=== PATIENT | male | born 1965 | race Caucasian/White ===

== ENCOUNTER 2023-06-27 06:22 | Emergency (ER) | payer OTHER ==
[~2023-06-27] VITALS: Ht 177.8 cm; Wt 92.5 kg
[2023-06-27] MEDS ORDERED: NS 1,000 ML IV ONE (06:55)
[2023-06-27] MEDS ORDERED: LOSARTAN 50MG TABLET PO ONE (06:55)
[2023-06-27 07:17] LABS: BASO # 0.1 10^3/uL (0.0-0.2); BASO % 0.6 % (0.0-1.0); EOS # 0.1 10^3/uL (0.0-0.5); EOS % 1.1 % (0.0-3.0); HEMATOCRIT 42.9 % (42.0-52.0); HEMOGLOBIN 15.3 g/dl (13.5-17.5); LYMPH # 2.6 10^3/uL (1.5-5.0); LYMPH % 22.9 % (24.0-44.0); MEAN CORPUSCULAR HEMOGLOBIN 33.3 pg (27.0-33.0); MEAN CORPUSCULAR HGB CONC 35.7 g/dl (32.0-36.5); MEAN CORPUSCULAR VOLUME 93.5 fl (80.0-96.0); MONO # 0.9 10^3/uL (0.0-0.8); MONO % 7.4 % (2.0-8.0); NEUTROPHILS # 7.7 10^3/uL (1.5-8.5); NEUTROPHILS % 67.7 % (36.0-66.0); PLATELET COUNT, AUTOMATED 196 10^3/uL (150-450); RED BLOOD COUNT 4.59 10^6/uL (4.30-6.10); WHITE BLOOD COUNT 11.4 10^3/uL (4.0-10.0)
[2023-06-27 07:37] LABS: ALBUMIN 3.9 G/DL (3.2-5.2); BILIRUBIN,DIRECT 0.5 MG/DL (<0.4); BILIRUBIN,TOTAL 1.3 MG/DL (0.3-1.2); CALCIUM LEVEL 8.4 MG/DL (8.5-10.1); CREATININE FOR GFR 1.89 MG/DL (0.70-1.30); GLOMERULAR FILTRATION RATE 39.1 (>56); POTASSIUM SERUM 3.9 MMOL/L (3.5-5.1)
[2023-06-27 07:44] VITALS: BP 143/84
[2023-06-27] MEDS ORDERED: ROSU10TA6 PO (07:55)
[2023-06-27] MEDS ORDERED: PRIL20TA2 PO (07:55)
[2023-06-27] MEDS ORDERED: METF500T13 PO (07:55)
[2023-06-27] MEDS ORDERED: ASPI81CH33 PO (07:55)
[2023-06-27] MEDS ORDERED: AMLO10TA PO (07:55)
[2023-06-27] MEDS ORDERED: LOSA50TA28 PO (07:55)
[2023-06-27] MEDS ORDERED: ONDANSETRON 4MG 2ML VIAL IV ONE (08:05)
[2023-06-27] MEDS ORDERED: MORPHINE 4 MG/ML 1ML VIAL IV ONE (08:05)
[2023-06-27] MEDS ORDERED: OXYC1TAB23 PO (09:23)
[2023-06-27] MEDS ORDERED: FLOM0.4C39 PO (09:23)
[2023-06-27 09:33] VITALS: BP 141/94; TEMP 98.1; O2SAT 96
== END 2023-06-27 09:48 | disposition home or self-care (01) ==
LOC: M ED 06:22
DX: N20.1 Calculus of ureter (principal); R94.4 Abnormal results of kidney function studies; E11.9 Type 2 diabetes mellitus without complications; I10 Essential (primary) hypertension; Z87.442 Personal history of urinary calculi; Z79.82 Long term (current) use of aspirin; Z79.811 Long term (current) use of aromatase inhibitors; Z79.899 Other long term (current) drug therapy
CPT/HCPCS: 76775; 80048; 80076; 81001; 83690; 85025; 96361; 96374; 96375; 99284; J2405